=== PATIENT | female | born 1950 | race Caucasian/White ===

== ENCOUNTER 2021-07-20 13:08 | Emergency (ER) | payer OTHER ==
[~2021-07-20] VITALS: Ht 165.1 cm; Wt 53.5 kg
--- NOTE | 2021-07-20 13:08 | NUR ---
BIBFRIEND FROM HOME SENT BY PMD DUE TO ABNORMAL LABS 7.6HGB. A&OX4 AND STABLE. VITALS ARE WITHIN NORMAL LIMITS. BREATHING IS EVEN AND UNALBORED.
--- NOTE | 2021-07-20 13:55 | NUR ---
SALINE LOCK ESTABLISHED, BLOOD DRAWN AND PICKED UP BY LAB
[2021-07-20 13:58] LABS: BASOPHILS # (AUTO) 0.1 K/uL (0.0-0.2); BASOPHILS % (AUTO) 1.2 % (0.0-2.0); HEMATOCRIT 22 % (33-45); LYMPHOCYTES # (AUTO) 0.6 K/uL (0.8-4.8); LYMPHOCYTES % (AUTO) 10.1 % (20.0-44.0); MEAN CORPUSCULAR HGB CONC 33 g/dl (31.0-36.0); MEAN CORPUSCULAR VOLUME 87 fL (82-100); MONOCYTES # (AUTO) 0.8 K/uL (0.1-1.30); MONOCYTES % (AUTO) 14.6 % (2.0-12.0); NEUTROPHILS # (AUTO) 4.2 K/uL (1.8-8.9); NEUTROPHILS % (AUTO) 73.1 % (43.0-81.0); PLATELET COUNT (AUTO) 534 K/uL (150-450); RED BLOOD CELL COUNT(AUTO) 2.49 MIL/uL (4.0-5.2); WHITE BLOOD COUNT (AUTO) 5.8 K/uL (4.3-11.0)
[2021-07-20 14:37] LABS: ALBUMIN 3.3 g/dL (3.4-5.0); BILIRUBIN,TOTAL 0.2 mg/dL (0.2-1.0); CALCIUM, SERUM 8.2 mg/dL (8.5-10.1); CREATININE 0.8 mg/dL (0.6-1.3); POTASSIUM 4.3 mmol/L (3.5-5.1); TOTAL PROTEIN, SERUM 6.4 g/dL (6.4-8.2)
--- NOTE | 2021-07-20 16:20 | NUR ---
Julita [place] [phone]
--- NOTE | 2021-07-20 16:21 | NUR ---
JOSH REGAL [phone] REQUESTING CLINICALS TO [phone]
--- NOTE | 2021-07-20 16:25 | NUR ---
FECAL STOOL OB SAMPLE COLLECTED BY SIMONE CARRASQUILLO AND SENT TO LAB
--- NOTE | 2021-07-20 16:41 | NUR ---
PT SIGNED AGAINST MEDICAL ADVICE. PT WAS EXPLAINED HER RISKS.
[2021-07-20 16:47] LABS: BASOPHILS % (MANUAL) 1 % (0.0-2.0); EOSINOPHILS % (MANUAL) 1 % (0-4); LYMPHOCYTES % (MANUAL) 10 % (16-48); MONOCYTES % (MANUAL) 13 % (0-11.0); NEUTROPHILS % (MANUAL) 75 (42-76)
[2021-07-20 16:53] VITALS: BP 136/72
[2021-07-20 17:03] LABS: OCCULT BLOOD STOOL POSITIVE (NEGATIVE)
== END 2021-07-20 16:54 | disposition left against medical advice (07) ==
LOC: ER 13:14
DX: D64.9 Anemia, unspecified (principal); R94.31 Abnormal electrocardiogram [ECG] [EKG]; M81.0 Age-related osteoporosis without current pathological fracture; Z88.8 Allergy status to other drugs, medicaments and biological substances
CPT/HCPCS: 36415; 80048-TC; 80076-TC; 82272-TC; 85025-TC; 85730-TC; 86850-TC